=== PATIENT | male | born 1985 | race Caucasian/White ===

== ENCOUNTER 2021-03-24 23:02 | Emergency (ER) | payer SELFPAY ==
[~2021-03-24] VITALS: Ht 172.7 cm; Wt 59.1 kg
[2021-03-24 23:07] VITALS: BP 132/84; Ht 172.7 cm; Wt 59.1 kg
[2021-03-24] MEDS ORDERED: BIKTARVY 50-201 EACH PO (23:10)
[2021-03-24] MEDS ORDERED: OXYCONTIN10 MG PO (23:10)
[2021-03-24] MEDS ORDERED: IBUPROFEN800 MG PO (23:11)
[2021-03-24] MEDS ORDERED: CHLORHEXIDINE473 M1 PO (23:11)
[2021-03-24] MEDS ORDERED: AZULFIDINE500 MG PO (23:11)
[2021-03-24] MEDS ORDERED: BENTYL 20 MG TA20 MG PO (23:11)
[2021-03-24] MEDS ORDERED: ELAVIL25 MG PO (23:12)
[2021-03-24] MEDS ORDERED: PERCOCET 10-321 EAC1 PO (23:30)
[2021-03-24] MEDS ORDERED: CLEOCIN HCL300 MG PO (23:30)
== END 2021-03-24 23:51 | disposition home or self-care (01) ==
LOC: D.ER 23:02
DX: K02.9 Dental caries, unspecified (principal); S02.5XXA Fracture of tooth (traumatic), initial encounter for closed fracture; K04.7 Periapical abscess without sinus; Z72.0 Tobacco use